=== PATIENT | male | born 1975 | race Caucasian/White ===

== ENCOUNTER 2018-11-04 19:31 | Emergency (ER) | payer MEDICAID ==
[~2018-11-04] VITALS: Ht 167.6 cm; Wt 84.4 kg
[~2018-11-04 19:31] MED LIST: IBUP-1542 PO
[2018-11-04 19:35] VITALS: Ht 167.6 cm; Wt 84.4 kg
--- NOTE | 2018-11-04 21:34 | ERD ---
ER Documentation Chief Complaint Chief Complaint LEFT FOOT PAIN; NO KNOWN INJ X1DAY HPI This is a previously healthy 43-year-old male presenting to the emergency department complaints of left ankle left foot pain after injury which occurred yesterday. The patient was running during a soccer game and accidentally in verted his ankle. He reports moderate to severe pain which is constant and worse with movement and walking. He tried no medication for relief of symptoms. He denies any falls, head injury, loss of consciousness, or other symptoms or injuries at this time. ROS All systems reviewed and are negative except as per history of present illness. Medications Home Meds Active Scripts Ibuprofen* (Motrin*) 600 Mg Tab, 600 MG PO Q6, #30 TAB Prov:RIN CASTILLO PA-C 11/04/18 Allergies Allergies: Coded Allergies: No Known Allergy (Unverified , 11/04/18) PMhx/Soc Medical and Surgical Hx: pt denies Medical Hx, pt denies Surgical Hx Hx Alcohol Use: No Hx Substance Use: No Hx Tobacco Use: No Smoking Status: Never smoker FmHx Family History: No diabetes Physical Exam Vitals Vital Signs Date Temp Pulse Resp B/P (MAP) Pulse Ox O2 O2 Flow FiO2 Time Delivery Rate 11/05/18 78 16 132/74 98 Room Air 00:17 (93) 11/04/18 97.5 67 18 133/65 98 19:35 (87) Physical Exam Const: No acute distress Head: Atraumatic Eyes: Normal Conjunctiva ENT: Normal External Ears, Nose and Mouth. Neck: Full range of motion. No meningismus. Resp: No respiratory distress. Skin: No petechiae or rashes Back: No midline or flank tenderness Ext: There is soft tissue swelling and tenderness to palpation of the left medial malleolus. There is no obvious deformity or open fractures noted. Patient is neurovascularly intact distally. Neur: Awake and alert Psych: Normal Mood and Affect Results 24 hrs Current Medications Medications Dose Sig/Lona Start Time Status Last (Trade) Ordered Route PRN Stop Time Admin Dose Reason Admin Ibuprofen 600 mg ONCE ONCE 11/04/18 DC 11/04/18 (Motrin) PO 22:00 21:49 11/04/18 22:01 [place] [id number] Radiology Main Line: [phone] DIAGNOSTIC IMAGING REPORT Patient: TOY CELAYA : 1975 Age: 43 Sex: M MR #: [id number] DOS: 11/04/18 0000 Ordering MD: RIN CASTILLO PA-C Location: [facility] Room/Bed: PROCEDURE: XR Left Ankle. CLINICAL INDICATION: Trauma. Left ankle pain. TECHNIQUE: 3 views. Frontal, lateral, and oblique. COMPARISON: None. FINDINGS: There is no fracture or dislocation. There is medial and lateral soft tissue swelling. Articular surfaces are intact. There is no lytic or blastic lesion. There is no radiopaque foreign body. IMPRESSION: 1. Medial and lateral soft tissue swelling. 2. Otherwise unremarkable images of the left ankle. RPTAT: QQ .Mynor Pardo MD, MD Date Time Electronically viewed and signed by .Mynor Pardo MD, on 11/04/2018 22:36 .R/ CC: RIN CASTILLO PA-C [id number] [place] [id number] Radiology Main Line: [phone] DIAGNOSTIC IMAGING REPORT Patient: TOY CELAYA : 1975 Age: 43 Sex: M MR #: [id number] DOS: 11/04/18 0000 Ordering MD: RIN CASTILLO PA-C Location: [facility] Room/Bed: PROCEDURE: XR left foot. CLINICAL INDICATION: Trauma. Lateral left foot pain. TECHNIQUE: 3 views. Frontal, lateral, and oblique. COMPARISON: None. FINDINGS: There is no fracture or dislocation. The soft tissues are normal. Articular surfaces are intact. There is no lytic or blastic lesion. There is no radiopaque foreign body. IMPRESSION: 1. Normal images of the left foot. RPTAT: QQ .Mynor Pardo MD, Date Time Electronically viewed and signed by .Mynor Pardo MD, MD on 11/04/2018 22:37 .R/ CC: RIN CASTILLO PA-C [id number] Procedures/MDM 43-year-old male is presenting to the emergency department complaining of left ankle and left foot pain after injury. Patient required splinting for immobilization of possible fracture and for comfort.Splint Assessment: Neurovascularly intact post splint placement with good fit. Patient's extremity symptoms have stabilized while they have been evaluated in the department and are appropriate for outpatient follow up. No evidence of compartment syndrome, neurologic injury, vascular injury, open joint, open fracture, tendon laceration, or foreign body. Patient advised to have 24 to 48-hour follow-up with orthopedic physician and return here immediately for any new or concerning symptoms. Departure Diagnosis: Primary Impression: Injury of foot Encounter type: initial encounter Laterality: left Qualified Codes: S99.922A - Unspecified injury of left foot, initial encounter Condition: Fair Patient Instructions: Contusion, Foot RIN CASTILLO PA-C Nov 04, 2018 21:34
[2018-11-04] MEDS ORDERED: IBUPROFEN 600 MG TAB PO ONE (22:00)
[2018-11-05 00:17] VITALS: BP 132/74; PULSE 78; RESP 16
== END 2018-11-05 00:18 | disposition home or self-care (01) ==
LOC: FTE 19:31
DX: S99.922A Unspecified injury of left foot, initial encounter (principal); X50.9XXA Other and unspecified overexertion or strenuous movements or postures, initial encounter; Y92.322 Soccer field as the place of occurrence of the external cause
CPT/HCPCS: 73610; 73630; Z7610